=== PATIENT | male | born 1995 | race Two or more races ===

== ENCOUNTER 2024-07-24 10:30 | Emergency (ER) | payer SELFPAY ==
[2024-07-24] MEDS: predniSONE 20 MG Tab PO STA (11:33)
[2024-07-24] MEDS: Acetaminophen/oxyCODONE 325-10 MG Tab PO ONE (11:34)
== END 2024-07-24 12:01 | disposition home or self-care (01) ==
LOC: MW.ED 10:30
DX: M54.41 Lumbago with sciatica, right side (principal); Z75.8 Other problems related to medical facilities and other health care; Z79.899 Other long term (current) drug therapy
CPT/HCPCS: 72131; 99283; A9270

== ENCOUNTER 2024-07-26 11:58 | Emergency (ER) | payer SELFPAY | END 2024-07-26 14:28 | disposition home or self-care (01) | LOC: MW.ED 11:58 | DX: M54.9 Dorsalgia, unspecified (principal); Z75.8 Other problems related to medical facilities and other health care | CPT/HCPCS: 99283 ==